=== PATIENT | male | born 1975 | race Caucasian/White ===

== ENCOUNTER 2016-08-13 08:35 | Emergency (ER) | payer OTHER ==
[~2016-08-13] VITALS: Ht 188 cm; Wt 113.9 kg
[~2016-08-13 08:35] MED LIST: ATENOLOL50 MG; ATENOLOL50 MG PO; AUGMENTIN875 MG PO; CIPRO500 MG PO; CLARITIN10 M3 PO; CLOTRIMAZOLE-BE15 GM TP; FLAGYL500 MG PO; FLONASE16 G1 BOTH NARES; GLUCOPHAGE500 MG; LANTUS 10100 UNITS/ SQ; LANTUS 3 M100 UNITS1 SC; LANTUS 3 M100 UNITS1 SQ; LANTUS100 UNIT/1 SQ; LISINOPRIL10 MG; LISINOPRIL10 MG PO; METFORMIN HCL500 MG PO; MIRALAX255 GM PO; MOTRIN800 MG PO; NASACORT10.8 ML BOTH NARES; NOVOLIN,HU100 UNITS1 SC; NOVOLOG 10100 UNITS/ SQ; PRINIVIL10 MG PO; TYLENOL WITH C1 EACH PO; ZYRTEC10 M2 PO
[2016-08-13 09:32] LABS: ADD MIUA? YES; BILIRUBIN NEGATIVE; BLOOD NEGATIVE; COLOR YELLOW ((YELLOW)); GLUCOSE (STRIP) NEGATIVE; KETONES 5; LEUKOCYTES SMALL; NITRITE NEGATIVE; PROTEIN (STRIP) 30; SPECIFIC GRAVITY 1.029 (1.000-1.030); UROBILINOGEN 0.2 MG/DL (0.2-1.0)
[2016-08-13 09:49] LABS: BACTERIA NONE SEEN /HPF; EPITHELIAL CELLS RARE /HPF; MUCUS 2+ /LPF; RED BLOOD CELLS 0-5 /HPF (0-5); WHITE BLOOD CELLS 30-40 /HPF (0-5)
[2016-08-13 09:57] LABS: EOSINOPHIL COUNT 0.1 K/uL (0-0.3); HEMATOCRIT 42.2 % (38.0-50.0); IMMATURE GRANULOCYTE (%) 1.5 % (0.0-0.7); IMMATURE GRANULOCYTE COUNT 0.1 K/uL; INSTRUMENT ABS NEUTROPHIL CT 5.8 K/uL; LYMPHOCYTE COUNT 1.3 K/uL (1.0-2.8); MCH 28.8 PG (29.0-34.0); MCHC 33.6 G/DL (30.0-36.0); MCV 85.6 FL (86-99); MEAN PLAT.VOLUME 10.3 uM^3 (9.0-12.4); MONOCYTE COUNT 0.4 K/uL (0-0.8); NEUTROPHIL (%) 75.3 % (45-76); NEUTROPHIL COUNT 5.8 K/uL (1.8-6.4); PLATELET COUNT 318 K/uL (156-360); RBC DIS.WIDTH-CV 13.4 % (11.8-14.6); RBC DIS.WIDTH-SD 41.3 % (39-53); RED BLOOD COUNT 4.93 M/uL (4.00-5.50); WHITE BLOOD COUNT 7.8 K/uL (4.1-10.2)
[2016-08-13 10:15] LABS: CHLORIDE 104 mEq/L (99-109); POTASSIUM 3.3 mEq/L (3.7-5.4); SODIUM 141 mEq/L (136-147)
[2016-08-13 10:16] LABS: GLUCOSE 178 mg/dL (70-99)
[2016-08-13 10:18] LABS: ANION GAP 12 MEQ/L (2-14)
[2016-08-13 10:20] LABS: GFR ESTIMATE (CALCULATED) > 59 mL/min/
[2016-08-13 10:21] LABS: UREA NITROGEN (BUN) 7 mg/dL (9-23)
[2016-08-13] MEDS ORDERED: LEVAQUIN500 MG PO (11:17)
[2016-08-13] MEDS ORDERED: TYLENOL WITH C1 EACH PO (11:17)
[2016-08-13 12:16] VITALS: BP 129/70
== END 2016-08-13 12:26 | disposition home or self-care (01) ==
LOC: EME 08:35
PROVIDERS: Emergency Medicine
DX: N39.0 Urinary tract infection, site not specified (principal); R10.9 Unspecified abdominal pain; E11.9 Type 2 diabetes mellitus without complications; I10 Essential (primary) hypertension; Z79.4 Long term (current) use of insulin; J30.2 Other seasonal allergic rhinitis
CPT/HCPCS: 74176; 80048; 81003; 85025; 87077; 87086; 87186; 99281; 99284; J2270; J2405; J7030

== ENCOUNTER 2017-04-14 14:49 | Emergency (ER) | payer OTHER ==
[~2017-04-14 14:49] MED LIST changes: +LEVAQUIN500 MG PO
== END 2017-04-14 16:49 | disposition left against medical advice (07) ==
LOC: EME 14:49
DX: N50.9 Disorder of male genital organs, unspecified (principal); Z53.21 Procedure and treatment not carried out due to patient leaving prior to being seen by health care provider

== ENCOUNTER 2017-04-29 05:48 | Emergency (ER) | payer OTHER ==
[~2017-04-29] VITALS: Ht 190.5 cm; Wt 117.4 kg
[2017-04-29 06:50] LABS: EOSINOPHIL COUNT 0.1 K/uL (0-0.3); HEMATOCRIT 41.4 % (38.0-50.0); IMMATURE GRANULOCYTE (%) 0.6 % (0.0-0.7); INSTRUMENT ABS NEUTROPHIL CT 5.5 K/uL; MCH 29.7 PG (29.0-34.0); MCHC 34.5 G/DL (30.0-36.0); MCV 86.1 FL (86-99); MEAN PLAT.VOLUME 10.4 uM^3 (9.0-12.4); MONOCYTE (%) 7.5 % (3-12); MONOCYTE COUNT 0.5 K/uL (0-0.8); NEUTROPHIL COUNT 5.5 K/uL (1.8-6.4); PLATELET COUNT 221 K/uL (156-360); RBC DIS.WIDTH-CV 13.5 % (11.8-14.6); RBC DIS.WIDTH-SD 42.2 % (39-53); RED BLOOD COUNT 4.81 M/uL (4.00-5.50); WHITE BLOOD COUNT 7.1 K/uL (4.1-10.2)
[2017-04-29 06:58] LABS: CHLORIDE 102 mEq/L (99-109); POTASSIUM 3.9 mEq/L (3.7-5.4); SODIUM 136 mEq/L (136-147)
[2017-04-29 06:59] LABS: GLUCOSE 328 mg/dL (70-99)
[2017-04-29 07:01] LABS: ANION GAP 9 MEQ/L (2-14)
[2017-04-29 07:03] LABS: GFR ESTIMATE (CALCULATED) > 59 mL/min/ (58.99-99999)
[2017-04-29 07:04] LABS: UREA NITROGEN (BUN) 10 mg/dL (9-23)
[2017-04-29 08:21] LABS: ADD MIUA? NO; BILIRUBIN NEGATIVE; BLOOD NEGATIVE; COLOR YELLOW ((YELLOW)); GLUCOSE (STRIP) >=500; KETONES NEGATIVE; LEUKOCYTES NEGATIVE; NITRITE NEGATIVE; PROTEIN (STRIP) NEGATIVE; SPECIFIC GRAVITY 1.025 (1.000-1.030); UCUL ADDED? NO; UROBILINOGEN 0.2 MG/DL (0.2-1.0)
[2017-04-29] MEDS ORDERED: CIPRO500 MG PO (09:55)
[2017-04-29 10:35] VITALS: BP 147/84
== END 2017-04-29 10:41 | disposition home or self-care (01) ==
LOC: EME 05:48
PROVIDERS: Emergency Medicine
PROC: 0T9B70Z Drainage of Bladder with Drainage Device, Via Natural or Artificial Opening (ICD-10-PCS; principal; 2017-04-29)
DX: R33.9 Retention of urine, unspecified (principal); N30.90 Cystitis, unspecified without hematuria; R16.1 Splenomegaly, not elsewhere classified; I10 Essential (primary) hypertension; E11.9 Type 2 diabetes mellitus without complications; Z79.4 Long term (current) use of insulin
CPT/HCPCS: 74176; 80048; 81003; 85025; 99281; 99284

== ENCOUNTER 2017-06-03 05:52 | Emergency (ER) | payer OTHER ==
[~2017-06-03] VITALS: Ht 188 cm; Wt 114.0 kg
[2017-06-03 06:40] LABS: HEMATOCRIT 44.7 % (38.0-50.0); HEMOGLOBIN 15.2 G/DL (12.5-16.6); MCH 29.1 PG (29.0-34.0); MCV 85.6 FL (86-99); PLATELET COUNT 255 K/uL (156-360); RBC DIS.WIDTH-CV 13.2 % (11.8-14.6); RBC DIS.WIDTH-SD 40.9 % (39-53); RED BLOOD COUNT 5.22 M/uL (4.00-5.50); WHITE BLOOD COUNT 8.3 K/uL (4.1-10.2)
[2017-06-03 06:54] LABS: CHLORIDE 101 mEq/L (99-109); POTASSIUM 3.6 mEq/L (3.7-5.4); SODIUM 139 mEq/L (136-147)
[2017-06-03 06:56] LABS: GLUCOSE 237 mg/dL (70-99)
[2017-06-03 07:00] LABS: CREATININE 0.8 mg/dL (0.6-1.3); GFR ESTIMATE (CALCULATED) > 59 mL/min/ (58.99-99999)
[2017-06-03 07:01] LABS: TROP-I INTERPRETATION NEGATIVE; TROPONIN-I < 0.01 ng/mL (0.0-0.30); UREA NITROGEN (BUN) 8 mg/dL (9-23)
[2017-06-03] MEDS ORDERED: MOTRIN600 MG PO (08:06)
[2017-06-03 08:20] VITALS: BP 139/84
== END 2017-06-03 08:22 | disposition home or self-care (01) ==
LOC: EME 05:52
DX: R07.9 Chest pain, unspecified (principal); E11.9 Type 2 diabetes mellitus without complications; I10 Essential (primary) hypertension; Z79.4 Long term (current) use of insulin
CPT/HCPCS: 71046; 80048; 84484; 85027; 93005

== ENCOUNTER 2017-07-22 05:54 | Emergency (ER) | payer OTHER ==
[~2017-07-22] VITALS: Ht 188 cm; Wt 114.0 kg
[~2017-07-22 05:54] MED LIST changes: +MOTRIN600 MG PO
[2017-07-22 07:18] LABS: HEMATOCRIT 36.4 % (38.0-50.0); HEMOGLOBIN 12.6 G/DL (12.5-16.6); MCH 30.2 PG (29.0-34.0); MCHC 34.6 G/DL (30.0-36.0); MCV 87.3 FL (86-99); PLATELET COUNT 228 K/uL (156-360); RBC DIS.WIDTH-CV 13.8 % (11.8-14.6); RBC DIS.WIDTH-SD 43.1 % (39-53); RED BLOOD COUNT 4.17 M/uL (4.00-5.50); WHITE BLOOD COUNT 6.3 K/uL (4.1-10.2)
[2017-07-22 07:39] LABS: CHLORIDE 105 mEq/L (99-109); POTASSIUM 4.2 mEq/L (3.7-5.4); SODIUM 139 mEq/L (136-147)
[2017-07-22 07:40] LABS: GLUCOSE 298 mg/dL (70-99); TROP-I INTERPRETATION NEGATIVE; TROPONIN-I < 0.01 ng/mL (0.0-0.30)
[2017-07-22 07:44] LABS: CREATININE 0.8 mg/dL (0.6-1.3); GFR ESTIMATE (CALCULATED) > 59 mL/min/ (58.99-99999)
[2017-07-22 07:45] LABS: UREA NITROGEN (BUN) 11 mg/dL (9-23)
[2017-07-22 09:01] VITALS: BP 146/81
== END 2017-07-22 09:06 | disposition left against medical advice (07) ==
LOC: EME 05:54
DX: R07.89 Other chest pain (principal); I10 Essential (primary) hypertension; E11.9 Type 2 diabetes mellitus without complications; Z79.4 Long term (current) use of insulin
CPT/HCPCS: 71046; 80048; 84484; 85027; 93005; 99281; 99284